=== PATIENT | female | born 1995 | race Hispanic/Latino ===

== ENCOUNTER 2022-02-25 17:37 | Day surgery (SDC) | payer OTHER ==
[2022-02-25 18:12] VITALS: BMI 46.0
[2022-02-25] MEDS ORDERED: hydrALAZINE 20 MG/ML VIAL SLOW IVP PRN (18:59)
== END 2022-02-25 18:35 | disposition home health service (06) ==
LOC: CSHLD/OP 17:37
PROVIDERS: ATTEND Obstetrics & Gynecology
DX: O26.853 Spotting complicating pregnancy, third trimester (principal); O24.419 Gestational diabetes mellitus in pregnancy, unspecified control; Z3A.36 36 weeks gestation of pregnancy; O99.213 Obesity complicating pregnancy, third trimester; E66.9 Obesity, unspecified; Z79.82 Long term (current) use of aspirin; Z79.899 Other long term (current) drug therapy
CPT/HCPCS: 99282

== ENCOUNTER 2022-03-06 07:46 | Day surgery (SDC) | payer OTHER ==
[2022-03-06 08:12] VITALS: BMI 39.4
== END 2022-03-06 09:22 | disposition home or self-care (01) ==
LOC: CSHLD/OP 07:46
PROVIDERS: ATTEND Emergency Medicine
DX: O47.1 False labor at or after 37 completed weeks of gestation (principal); Z87.59 Personal history of other complications of pregnancy, childbirth and the puerperium; O24.313 Unspecified pre-existing diabetes mellitus in pregnancy, third trimester; O99.213 Obesity complicating pregnancy, third trimester; E66.9 Obesity, unspecified; Z3A.38 38 weeks gestation of pregnancy
CPT/HCPCS: 99283

== ENCOUNTER 2022-03-10 09:02 | Outpatient (CLI) | payer OTHER | END 2022-03-10 09:03 | disposition home or self-care (01) | LOC: CSHLAB 09:02 | PROVIDERS: ATTEND Obstetrics & Gynecology | DX: U07.1 COVID-19 (principal) | CPT/HCPCS: 87811 ==